=== PATIENT | female | born 1945 | race Caucasian/White ===

== ENCOUNTER → 2016-10-06 | Outpatient (CLI) | payer BC ==
[~2016-10-06] MED LIST: BORON PO; CHOL2000 PO; HYDR-5688 PO; IMD/2 PO; PYRI100T4 PO; VITAMIN B6 PO; ZINC1CAP PO; [UNRECOGNIZED DRUG - CODE] PO
== END | disposition home or self-care (01) ==
LOC: C.CPL 11:00
PROVIDERS: ATTEND Orthopaedic Surgery Sports Medicine
DX: M75.111 Incomplete rotator cuff tear or rupture of right shoulder, not specified as traumatic (principal)

== ENCOUNTER 2017-01-17 09:41 | Emergency (ER) | payer BC ==
[~2017-01-17] VITALS: Ht 165.1 cm; Wt 49.0 kg
[~2017-01-17 09:41] MED LIST changes: -CHOL2000 PO; -HYDR-5688 PO; -IMD/2 PO; -PYRI100T4 PO; -ZINC1CAP PO; -[UNRECOGNIZED DRUG - CODE] PO
[2017-01-17 09:46] VITALS: TEMP 36.7; Ht 165.1 cm; Wt 49.0 kg
[2017-01-17] MEDS ORDERED: DIPHTHERIA/TETANUS/PERTUSSIS 0.5 ML SYR/VIAL IM. ONE (10:15)
[2017-01-17] MEDS ORDERED: GELATIN SPONGE 12-7MM EXT ONE (10:15)
--- NOTE | 2017-01-17 10:17 | EMERGENCY ROOM VISIT NOTE ---
History Report prepared by Lindaibe: Rakel Lou Under the Supervision of: Dr. Damon Smith M.D. First contact with patient: 10:02 Chief Complaint: LACERATION/CUT (SUT/DERMABOND) Stated Complaint: CUT ON L FINGER (FOREFINGER) Nursing Triage Summary: R index and middle finger bruising, avulsion to L index finger History of Present Illness The patient is a 71 year old female who presents to the Emergency Room with complaints of multiple finger injuries that occurred this morning. The patient states that she accidentally dropped a storm window on her fingers of her right and left hands. Her current discomfort is a 4/10. She obtained lacerations to her right long and index fingers as well as her left index finger. She did not acquire any other injuries during the accident. She is unsure of the date of her last tetanus shot. Source of History: patient Onset: this morning Position: finger(s) Symptom Intensity: 4/10 Timing: constant Review of Systems All systems have been listed, reviewed, and are negative other than those previously mentioned. Please see Additional Medical History Sheet. Past Medical & Surgical Medical Problems: (1) No Known Active Medical Problems Family History Patient reports no known family medical history. Social History Smoking Status: Never Smoker Marital Status: Occupation Status: retired Current/Historical Medications Scheduled Cholecalciferol (Vitamin D3), 1 CAP PO DAILY Zinc Sulfate (Zinc Sulfate), 1 CAP PO DAILY [[place]], 1 TAB PO BID [Vitamin B6], 1 TAB PO QAM Scheduled PRN Loperamide Hcl (Imodium), 2 MG PO DIRECTED PRN for Diarrhea Allergies Coded Allergies: Penicillins (Verified Allergy, Mild, GI UPSET, 01/17/17) Physical Exam Vital Signs Date Time Temp Pulse Resp B/P Pulse Ox O2 Delivery O2 Flow Rate FiO2 01/17/17 12:10 56 16 129/66 96 01/17/17 09:46 36.7 75 18 125/71 97 Room Air Physical Exam GENERAL: Patient awake, alert, oriented x 3. Patient follows commands. Patient does not appear toxic. Patient is adequately hydrated and well- nourished. SKIN: No erythema, pallor, cyanosis or rash HEENT: Normal head, pupils equal, reactive to light and accommodation. Patient had a left subconjunctival hemorrhage from yesterday. EXTREMITIES: Hands - 1.5 cm avulsion laceration on the vola aspect of the distal end of the left index finger. Abrasions proximal to the nail bed on the right index and right long fingers. No signs of infection. NEUROLOGIC: Cranial nerves II-XII within normal limits. No gross motor sensory function deficits. Medical Decision & Procedures Medications Administered Medications (Trade) Dose Ordered Sig/Benitez Route Start Time Stop Time Status Last Admin Dose Admin Gelatin (Surgifoam Sponge 12-7MM (SMALL)) 1 ea NOW ONCE EXT 01/17/17 10:15 01/17/17 10:16 DC 01/17/17 11:02 1 EA Diphtheria/ Pertussis/Tetanus Vacc (Adacel Inj) 0.5 ml ONCE ONCE IM. 01/17/17 10:15 01/17/17 10:16 DC 01/17/17 11:02 0.5 ML Alprazolam (Xanax Tab) 0.5 mg STK-MED ONCE .ROUTE 01/17/17 11:03 01/17/17 11:04 DC 01/17/17 11:01 0.25 MG Acetaminophen (Tylenol Tab) 1,000 mg STK-MED ONCE PO 01/17/17 11:32 01/17/17 11:33 DC 01/17/17 11:29 1,000 MG ED Course 0955: The patient was evaluated in room B10. A complete history and physical examination was performed. 1015: Dr. Lloyd's office is being contacted to determine the status on the patient 's tetanus shot. Ordered Surgifoam Sponge 12-7MM (small) 1 ea EXT, Adacel Inj 0.5 ml IM. 1026: I reassessed the patient. She was feeling lightheaded. She appeared to be very anxious. 1028: Nursing staff reports that there is no Tetanus status for the patient. 1030: Ordered Xanax Tab 0.25 mg PO. 1117: Ordered Tylenol Tab 1000 mg PO. 1121: The patient is feeling slightly better after receiving 0.25 mg Xanax. 1140: Upon reevaluation, the patient was resting comfortably. I discussed today' s findings with the patient. She verbalized agreement of the treatment plan. The patient was discharged home. Medical Decision Nurses notes reviewed. Medical history sheet reviewed. Differential diagnosis includes but is not limited to: multiple lacerations, avulsions. The patient has an avulsion on her left index finger into small abrasions on her right hand. Gelfoam was applied to the left hand and Band-Aids were applied to the right hand. The patient is extremely anxious. She was given a tetanus diphtheria pertussis immunization. She was also given Xanax for her anxiety. Impression Primary Impression: Avulsion of skin of finger Additional Impressions: Abrasion of finger of right hand Anxiety Scribe Attestation The scribe's documentation has been prepared under my direction and personally reviewed by me in its entirety. I confirm that the note above accurately reflects all work, treatment, procedures, and medical decision making performed by me. Departure Information Dispostion Home / Self-Care Referrals Pro,Jaylen Juares M.D. (PCP) Patient Instructions My [facility] Additional Instructions Clean your hands daily with warm soap and water. Cover the abrasions on your right hand with Band-Aids. Cover the avulsion on the left index finger with a bandage. 1000 mg of acetaminophen every 4-6 hours as needed for pain. Your tetanus/diphtheria/pertussis immunization is good for 10 years. Problem Qualifiers
[2017-01-17] MEDS ORDERED: ALPRAZOLAM 0.25 MG TAB PO ONE (10:30)
[2017-01-17] MEDS ORDERED: ALPRAZOLAM 0.5 MG TAB ONE (11:03)
[2017-01-17] MEDS ORDERED: ACETAMINOPHEN 325 MG TAB PO STA (11:17)
[2017-01-17] MEDS ORDERED: ACETAMINOPHEN 500 MG TAB PO ONE (11:32)
[2017-01-17 12:10] VITALS: BP 129/66; PULSE 56; O2SAT 96
--- NOTE | 2017-01-28 07:44 | EDITING REQUIRED CODING QUERY ---
LENGTH OF LACERATION To promote full compliance with coding requirements relating to patient care, physician participation is requested in all cases of machine pack assembler uncertainty. Please assist us with the question(s) below: Please document the length of the finger laceration. Please type the length in cm within the parenthesis () below. Finger laceration is ( ) cm. Thank you Malinda Denis
[2017-03-16] MEDS ORDERED: ZINC1CAP PO (10:11)
[2017-03-16] MEDS ORDERED: CHOL2000 PO (10:11)
[2017-03-16] MEDS ORDERED: IMD/2 PO (10:59)
== END 2017-01-17 12:11 | disposition home or self-care (01) ==
LOC: C.EDB 09:42
DX: S61.211A Laceration without foreign body of left index finger without damage to nail, initial encounter (principal); S60.410A Abrasion of right index finger, initial encounter; S60.414A Abrasion of right ring finger, initial encounter; W23.0XXA Caught, crushed, jammed, or pinched between moving objects, initial encounter; Z79.899 Other long term (current) drug therapy; F41.9 Anxiety disorder, unspecified; Z23 Encounter for immunization

== ENCOUNTER → 2017-02-15 | Outpatient (CLI) | payer BC ==
[~2017-02-15] MED LIST changes: +CHOL2000 PO; +HYDR-5688 PO; +IMD/2 PO; +PYRI100T4 PO; +ZINC1CAP PO; +[UNRECOGNIZED DRUG - CODE] PO
--- NOTE | 2017-02-15 08:49 | DIAGNOSTIC IMAGING REPORT ---
ABDOMINAL ULTRASOUND, RIGHT UPPER QUADRANT HISTORY: RIGHT LOBE LIVER LESION. COMPARISON: Abdomen and pelvis CT 04/06/2016. Abdominal ultrasound 03/12/2016. FINDINGS: Pancreas: The pancreas demonstrates a normal echotexture. Liver: There is a 1.1 x 1.1 x 0.5 cm hyperechoic area within the liver adjacent to the gallbladder. This is stable to slightly increased in size from the prior study. Gallbladder: No gallbladder wall thickening. No gallstones. CBD: 4 mm. Right kidney: No hydronephrosis. IMPRESSION: There is a 1.1 x 1.1 x 0.5 cm hyperechoic area within the liver adjacent to the gallbladder. This is stable to slightly increased in size. This has a typical appearance and location for focal fat. An additional 6 month to one year ultrasound follow-up can be performed to ensure stability. Electronically signed by: Chad Guzman M.D. 02/15/2017 8:47 AM Dictated Date/Time: 02/15/2017 8:44 AM
== END | disposition home or self-care (01) ==
LOC: C.ULTR 07:44
PROVIDERS: ATTEND Internal Medicine
DX: K76.89 Other specified diseases of liver (principal)

== ENCOUNTER → 2017-02-16 | Outpatient (CLI) | payer BC ==
--- NOTE | 2017-02-16 14:52 | MAMMOGRAPHY REPORT ---
BILATERAL DIGITAL SCREENING MAMMOGRAM WITH CAD: 02/16/2017 CLINICAL HISTORY: Routine screening. Patient has no complaints. TECHNIQUE: Bilateral CC and MLO views were obtained. Current study was also evaluated with a Comput er Aided Detection (CAD) system. COMPARISON: Comparison is made to exams dated: 02/12/2016 mammogram, 02/10/2015 mammogram, 02/06/2014 m ammogram, 02/01/2013 mammogram, 02/01/2012 mammogram, and 01/28/2011 mammogram - [facility] [address] [facility]ter. BREAST COMPOSITION: The tissue of both breasts is heterogeneously dense, which may obscure small ma sses. FINDINGS: The breast parenchyma is increasingly dense compared to prior mammograms, which could be s econdary to weight loss. There is a stable ribbon shaped metallic biopsy marker in the right breast . Scattered benign-appearing round and rim calcifications. No new suspicious mass, architectural d istortion or cluster of microcalcifications is seen. IMPRESSION: ACR BI-RADS CATEGORY 1: NEGATIVE There is no mammographic evidence of malignancy. A 1 year screening mammogram is recommended. The p atient will receive written notification of the results. Approximately 10% of breast cancers are not detected with mammography. A negative mammographic repor t should not delay biopsy if a clinically suggestive mass is present. Anuja Olivas M.D. ay/:02/16/2017 11:00:33 Alteration Workroom Supervisor: Barbara ST(Lalitha)(Georgette), [facility] letter sent: Normal 1/2 BI-RADS Code: ACR BI-RADS Category 1: Negative
== END | disposition home or self-care (01) ==
LOC: C.MAMM 09:43
PROVIDERS: ATTEND Internal Medicine
DX: Z12.31 Encounter for screening mammogram for malignant neoplasm of breast (principal)

== ENCOUNTER 2017-03-16 14:57 | Emergency (ER) | payer BC ==
[~2017-03-16] VITALS: Ht 165.1 cm; Wt 53.0 kg
[~2017-03-16 14:57] MED LIST changes: -HYDR-5688 PO; -PYRI100T4 PO; -[UNRECOGNIZED DRUG - CODE] PO
[2017-03-16 15:00] VITALS: TEMP 36.8; Ht 165.1 cm; Wt 53.0 kg
[2017-03-16] MEDS ORDERED: MoRPHine SULFATE 4 MG/ML 1 ML CARP\\VIAL IV STA (15:09)
[2017-03-16] MEDS ORDERED: ONDANSETRON INJ 2 MG/ML 2 ML VIAL IV STA (15:09)
[2017-03-16] MEDS ORDERED: PYRI100T4 PO (15:35)
[2017-03-16] MEDS ORDERED: [UNRECOGNIZED DRUG - CODE] PO (15:35)
--- NOTE | 2017-03-16 15:35 | DIAGNOSTIC IMAGING REPORT ---
RIGHT HAND 3 VIEWS HISTORY: Fall, right hand/finger pain Right COMPARISON: None. FINDINGS: There is a fracture at the base of the proximal phalanx of the right fifth digit. This demonstrates dorsal angulation. There is associated soft tissue swelling. The fracture does not clearly extend to the MCP joint. No dislocation. No radiopaque foreign bodies. IMPRESSION: Angulated fracture at the base of the proximal phalanx of the right fifth digit. Electronically signed by: Chad Guzman M.D. 03/16/2017 3:34 PM Dictated Date/Time: 03/16/2017 3:32 PM
[2017-03-16] MEDS ORDERED: BUPIVACAINE 0.5 % 5 MG/1 ML MPF 30ML VIAL INFIL STA (16:11)
[2017-03-16] MEDS ORDERED: XYLOCAINE 1%/SOD BICARB 20 ML VIAL INFIL STA (16:11)
[2017-03-16 16:57] VITALS: BP 130/71; PULSE 60; O2SAT 99
[2017-03-16] MEDS ORDERED: HYDR-5688 PO (17:04)
--- NOTE | 2017-03-16 17:07 | EMERGENCY ROOM VISIT NOTE ---
History First contact with patient: 15:02 Chief Complaint: FALL Stated Complaint: FALL, FINGER PAIN, SKIN TEARS OF ARMS, History of Present Illness The patient is a 71 year old female who presents to the Emergency [facility] via ambulance with complaints of "fall, finger pain, skin tears of arms". The patient states that just prior to arrival she was crossing the street in [facility] [place], when she tripped on the uneven pavement that was recently being worked upon, causing her fall forward injuring her right fifth digit. She denies striking her head, loss of consciousness, headache, neck pain, wrist pain. She does not take any anticoagulants. Her last tetanus was January 2017. Review of Systems A complete 6-point Review of Systems was discussed with the patient, with pertinent positives and negatives listed in the History of Present Illness. All remaining Review of Systems questions can be considered negative unless otherwise specified. Past Medical/Surgical History Medical Problems: (1) No Known Active Medical Problems Family History Patient reports no known family medical history. Social History Smoking Status: Never Smoker Marital Status: Occupation Status: retired Current/Historical Medications Scheduled Tovey (Tovey), 6 MG PO BID Cholecalciferol (Vitamin D3), 2,000 INTER.UNIT PO DAILY Pyridoxine Hcl (Vitamin B6 100 Mg), 100 MG PO DAILY Zinc Sulfate (Zinc Sulfate), 1 CAP PO DAILY Scheduled PRN Hydrocodone/Acetaminophen 5MG/325MG ([place] 5MG/325MG), 1-2 TABLET PO Q6 PRN for Pain Loperamide Hcl (Imodium), 2 MG PO UD PRN for Diarrhea Allergies Coded Allergies: Penicillins (Verified Allergy, Mild, GI UPSET, 01/17/17) Physical Exam Vital Signs Date Time Temp Pulse Resp B/P (MAP) Pulse Ox O2 Delivery O2 Flow Rate FiO2 03/16/17 16:57 60 16 130/71 99 Room Air 03/16/17 15:00 36.8 72 16 150/78 99 Room Air Physical Exam VITAL SIGNS - Vital signs and nursing notes were reviewed. Patient is afebrile , hypertensive, non-tachycardic and is saturating well on room air. GENERAL -71-year-old female appearing her stated age who is in no acute distress. Communicates well with provider and answers questions appropriately. SKIN - there are multiple abrasions overlying the extremities. No active bleeding noted. There is an obvious deformity of the right fifth finger. HEAD - NC/AT. EYES - PERRL with EOMI bilaterally. Sclera anicteric. Palpebral conjunctiva pink and moist with no injection noted. EARS - No deformities of external structures noted on gross examination bilaterally. No pain elicited with palpation of the tragus bilaterally. External auditory canals without discharge or otorrhea. Tympanic membranes pearly calabrese without retraction or bulging. No fluid or purulent material visualized behind the TM. Handle of malleus, umbo, cone of light, pars tensa/ flaccid all easily visualized. No hemotympanum NOSE - Midline and without cyanosis. No epistaxis or purulent drainage noted. Septum midline without deviation or septal hematoma noted. MOUTH/OROPHARYNX - Without perioral cyanosis. Buccal mucosa pink and moist and without leukoplakia. Tongue midline with equal elevation of palate bilaterally. No tonsillar hypertrophy, erythema, or exudates noted. Fair dentition noted. No blood in the posterior pharynx. NECK - Neck with FROM. Supple to palpation. No C-spine tenderness. LUNGS - Chest wall symmetric without accessory muscle use, intercostals retractions, or central cyanosis. Normal vesicular breath sounds CTA B/L. No wheezes, rales, or rhonchi appreciated. CARDIAC - RRR with S1/S2. No murmur, rubs, or gallops appreciated. EXTREMITIES - No clubbing or peripheral cyanosis. No pretibial edema present. There is tenderness to palpation overlying the right fifth digit. This is deformed. No breaks in the integument overlying the deformity. No other tenderness to palpation overlying the extremity is. +5/5 strength noted in UE/ LE bilaterally. NEUROLOGIC - Cranial nerves II through XII grossly intact. Medical Decision & Procedures ER Provider Diagnostic Interpretation: RIGHT HAND 3 VIEWS HISTORY: Fall, right hand/finger pain Right COMPARISON: None. FINDINGS: There is a fracture at the base of the proximal phalanx of the right fifth digit. This demonstrates dorsal angulation. There is associated soft tissue swelling. The fracture does not clearly extend to the MCP joint. No dislocation. No radiopaque foreign bodies. IMPRESSION: Angulated fracture at the base of the proximal phalanx of the right fifth digit. Electronically signed by: Chad Guzman M.D. 03/16/2017 3:34 PM Dictated Date/Time: 03/16/2017 3:32 PM RIGHT FINGER(S) MIN 2 VIEWS ROUTINE CLINICAL HISTORY: Right 5th digit post reduction Right COMPARISON: 03/16/2017 DISCUSSION: Anatomic alignment status post closed reduction. Fracture at the base of the proximal phalanx of the fifth finger now is aligned anatomically. There is no evidence for soft tissue swelling. IMPRESSION: Anatomic alignment status post closed reduction. Electronically signed by: Chano Spicer M.D. 03/16/2017 5:13 PM Dictated Date/Time: 03/16/2017 5:12 PM Medications Administered Medications (Trade) Dose Ordered Sig/Benitez Route Start Time Stop Time Status Last Admin Dose Admin Morphine Sulfate (MoRPHine SULFATE INJ) 4 mg NOW STAT IV 03/16/17 15:09 03/16/17 15:11 DC 03/16/17 15:17 4 MG Ondansetron HCl (Zofran Inj) 4 mg NOW STAT IV 03/16/17 15:09 03/16/17 15:11 DC 03/16/17 15:16 4 MG Medical Decision Patient was seen and evaluated as above. After obtaining a thorough history and physical examination it was evident the patient was experiencing likely dislocation or fracture of the right fifth digit. No other evidence of trauma to the body that would require imaging. There were some abrasions to the extremities of which were cleaned and bandaged. She tolerated this well. Radiograph does reveal fracture of the right fifth digit. Patient requests only for pain, therefore was given 4 mg of morphine and 4 mg of Zofran for any potential nausea. She was reevaluated and her pain was decreasing. After obtaining consent, digital block was performed of the right fifth digit of which a 50-50 ratio of 1% buffered lidocaine and 0.5% bupivacaine was utilized for a total of 5 mL's. The region prior to was sterilely draped and cleansed with Betadine. After appropriate anesthetization, my attending reduce the fracture. Patient tolerated this well. She will be splinted an ulnar gutter. She tolerated this well. She was neurovascularly intact post-splinting. She did request something for when the pain medication wore off therefore do believe [place] is warranted. I discussed other medications and it appears that this is the best choice. She is to follow-up with her orthopedic surgeon, as our complex case manager called [facility] to verify her appointment on Tuesday and to let them know that she also has a new fracture. They verified her appointment and notes that they have a to be able to manage her no fracture as well as for follow-up for her shoulder surgery. Patient at this time appears stable for discharge, was educated upon worrisome symptoms which to return, had questions about discharge, and was discharged home in good condition. She was educated thoroughly upon management today's findings. In evaluation treatment this patient the following differential diagnoses were entertained: Fracture of the right fifth digit, dislocation, contusion and multiple sites, head trauma, among others. Impression Primary Impression: Fall Additional Impressions: Contusion of multiple sites 5th digit fracture Departure Information Dispostion Home / Self-Care Condition GOOD Prescriptions Hydrocodone/Acetaminophen 5MG/325MG ([place] 5MG/325MG) Tab 1-2 TABLET PO Q6 Y for Pain, #15 TAB For Initial Treatment Prov: Demetrius Bella PA-C 03/16/17 Referrals Jaylen Lloyd M.D. (PCP) Patient Instructions My [facility] Additional Instructions You have been treated in the Emergency Department for injuries sustained after a fall. You have received pain medicine in the emergency department which impairs your ability to operate a vehicle. It is illegal for you to drive after receiving these medicines. You have been prescribed NORCO to be used for pain control. This is a narcotic medication. You cannot drive or consume alcohol while on this medicine. This medicine should only be used for pain that cannot be controlled with over-the- counter pain medicines. PLEASE DO NOT TAKE WITH TYLENOL THIS ALREADY HAS THIS IN IT! For pain control, you can use the following lyos-sdx-exvfxur medicines (if >12 yo): - Regular strength (325mg/tab) Tylenol (acetaminophen) 2 tabs every 4-6 hours as needed. Do not exceed 12 tablets in a 24 hour period. Avoid taking more than 3 grams (3000 mg) of Tylenol per day. This includes any other sources of acetaminophen you may take on a regular basis. - Regular strength (200 mg/tab) Advil (ibuprofen) 1-2 tabs every 4-6 hours as needed. Do not exceed a dose of 3200 mg per day. If this is a recent injury (<24 hrs), ice can be applied to the area of pain for the first 3 days to help decrease pain and inflammation. Please keep you appt with [facility] for tuesday. Keep the brace/splint in place until evaluated by Orthopedics. For the scrapes/abrasions please use bandages and antibiotic ointment. Return to the Emergency Department if your current symptoms worsen despite treatment course outlined above, or if you develop any of the following symptoms : intractable pain despite aforementioned treatment course or new onset of numbness or tingling of the fingers. Thank you for your time. Have a great day. Problem Qualifiers
--- NOTE | 2017-03-16 17:14 | DIAGNOSTIC IMAGING REPORT ---
RIGHT FINGER(S) MIN 2 VIEWS ROUTINE CLINICAL HISTORY: Right 5th digit post reduction Right COMPARISON: 03/16/2017 DISCUSSION: Anatomic alignment status post closed reduction. Fracture at the base of the proximal phalanx of the fifth finger now is aligned anatomically. There is no evidence for soft tissue swelling. IMPRESSION: Anatomic alignment status post closed reduction. Electronically signed by: Chano Spicer M.D. 03/16/2017 5:13 PM Dictated Date/Time: 03/16/2017 5:12 PM
--- NOTE | 2017-03-17 01:21 | EMERGENCY ROOM VISIT NOTE ---
ED Visit Note First contact with patient: 15:02 I have personally seen and evaluated the patient with the PA. I agree with the diagnosis and management decisions and have been personally involved in the case. The patient was evaluated and x-rays were reviewed. A digital block of the left pinky finger was performed by Demetrius Bella PA-C. The patient's finger was reduced by myself. The injury is closed and was easily reduced. Post reduction films were reviewed. The patient was splinted in an ulnar gutter. She has an appointment in 48 hours with her orthopedic surgeon for follow-up. Please see Demetrius Bella PA-C's notes for further details of the history, physical and visit.
== END 2017-03-16 17:47 | disposition home or self-care (01) ==
LOC: EDBD 14:57 → C.EDA 14:58
DX: S62.616A Displaced fracture of proximal phalanx of right little finger, initial encounter for closed fracture (principal); T14.8 Other injury of unspecified body region; W01.0XXA Fall on same level from slipping, tripping and stumbling without subsequent striking against object, initial encounter; Y92.414 Local residential or business street as the place of occurrence of the external cause

== ENCOUNTER → 2017-07-07 | Outpatient (CLI) | payer BC ==
[~2017-07-07] MED LIST changes: -BORON PO; +HYDR-5688 PO; +PYRI100T4 PO; -VITAMIN B6 PO; +[UNRECOGNIZED DRUG - CODE] PO
== END | disposition home or self-care (01) ==
LOC: C.MAMM 10:16
PROVIDERS: ATTEND Internal Medicine
DX: S62.90XA Unspecified fracture of unspecified hand, initial encounter for closed fracture (principal); X58.XXXA Exposure to other specified factors, initial encounter; M85.88 Other specified disorders of bone density and structure, other site; M85.851 Other specified disorders of bone density and structure, right thigh; M81.0 Age-related osteoporosis without current pathological fracture

== ENCOUNTER → 2018-02-17 | Outpatient (CLI) | payer BC ==
[~2018-02-17] MED LIST changes: -HYDR-5688 PO
--- NOTE | 2018-02-20 15:09 | MAMMOGRAPHY REPORT ---
BILATERAL DIGITAL SCREENING MAMMOGRAM TOMOSYNTHESIS WITH CAD: 02/17/2018 CLINICAL HISTORY: Routine screening. Patient has no complaints. TECHNIQUE: Breast tomosynthesis in addition to standard 2D mammography was performed. Current study was also evaluated with a Computer Aided Detection (CAD) system. COMPARISON: Comparison is made to exams dated: 02/16/2017 mammogram, 02/12/2016 mammogram, 02/10/2015 m ammogram, 02/06/2014 mammogram, 02/01/2013 mammogram, and 02/01/2012 mammogram - [facility] er. BREAST COMPOSITION: The tissue of both breasts is heterogeneously dense, which may obscure small mas ses. FINDINGS: No suspicious masses, calcifications, or areas of architectural distortion are noted in ei ther breast. There has been no significant interval change compared to prior exams. Scattered bilater al benign-appearing calcifications are not significantly changed. A biopsy clip is again noted withi n the right upper outer quadrant. An asymmetry seen within the left breast middle depth on the MLO v iew has the appearance of normal fibroglandular tissue on the tomosynthesis images. IMPRESSION: ACR BI-RADS CATEGORY 2: BENIGN There is no mammographic evidence of malignancy. A 1 year screening mammogram is recommended. The pa tient will receive written notification of the results. Approximately 10% of breast cancers are not detected with mammography. A negative mammographic report should not delay biopsy if a clinically suggestive mass is present. Violette Mendoza M.D. /:02/17/2018 16:39:41 Publications Production Supervisor: Yanique ST(Lalitha)(M), [facility] letter sent: Normal 1/2 BI-RADS Code: ACR BI-RADS Category 2: Benign
== END | disposition home or self-care (01) ==
LOC: C.MAMM 09:31
PROVIDERS: ATTEND Internal Medicine
DX: Z12.31 Encounter for screening mammogram for malignant neoplasm of breast (principal)